=== PATIENT | female | born 1980 | race Two or more races ===

== ENCOUNTER 2019-09-11 20:44 | Emergency (ER) | payer MEDICAID ==
[~2019-09-11] VITALS: Ht 152.4 cm; Wt 83.9 kg
[2019-09-11] MEDS ORDERED: cloNIDine HCL 0.1 MG TAB ONE (20:59)
[2019-09-11] MEDS ORDERED: cloNIDine HCL 0.1 MG TAB PO ONE (21:00)
[2019-09-11 23:00] LABS: Basophils # (auto) 0.1 uL; Basophils % (auto) 0.4 % (0.0-2.0); Eosinophils # (auto) 0 uL; Eosinophils % (auto) 0.2 % (0.0-7.0); Hematocrit 39.4 % (36.0-46.0); Lymphocytes # (auto) 1.3 uL; Lymphocytes % (auto) 10.1 % (10.0-50.0); Mean Corpuscular Hemoglobin 29.8 pg (28.0-32.0); Mean Corpuscular Volume 90.3 fL (80.0-100.0); Monocytes # (auto) 0.8 uL; Monocytes % (auto) 6.3 % (0.0-12.0); Neutrophils # (auto) 10.9 uL; Platelet Count (auto) 323 10^3/uL (140-450); Red Blood Cells 4.36 10^6/uL (4.0-5.20); Red Cell Distribution Width 14.3 % (11.8-14.3); White Blood Cell 13.2 10^3/uL (4.4-10.8)
[2019-09-11 23:25] LABS: Albumin 3.8 g/dL (3.4-5.0); Anion Gap 6 (5-15); Calcium 8.5 mg/dL (8.5-10.1); Carbon Dioxide 28 mmol/L (21-32); Chloride 104 mmol/L (98-107); Glucose 157 mg/dL (74-106); Magnesium 2.5 mg/dL (1.6-2.6); Potassium 3.4 mmol/L (3.5-5.1); Sodium 138 mmol/L (136-145)
[2019-09-11 23:33] LABS: Alanine Aminotransferase 95 U/L (13-56); Alkaline Phosphatase 72 U/L (45-117); Aspartate Aminotransferase 241 U/L (15-37); BUN/Creatinine Ratio 15.4; Bilirubin, Total 0.3 mg/dL (0.2-1.0); Blood Urea Nitrogen 12 mg/dL (7-18); GFR African American 106 mL/min; GFR Non-African American 87 mL/min; Total Protein 7.6 g/dL (6.4-8.2)
[2019-09-12 00:55] VITALS: BP 163/84
== END 2019-09-12 02:00 | disposition left against medical advice (07) ==
LOC: ER 20:47
DX: R07.89 Other chest pain (principal); Z53.21 Procedure and treatment not carried out due to patient leaving prior to being seen by health care provider
CPT/HCPCS: 36415; 71045; 80053; 83735; 83880; 84484; 85025; 93005